=== PATIENT | male | born 1965 | race Asian ===

== ENCOUNTER 2019-04-02 08:32 | Inpatient (IN) | payer OTHER ==
[~2019-04-02] VITALS: Ht 165.1 cm; Wt 72.6 kg
--- NOTE | 2019-04-02 08:32 | NUR ---
Patient BIBA ALS, transferred to bed 10. RN evaluating patient at bedside.
--- NOTE | 2019-04-02 08:32 | NUR ---
PT BIBA TO ED FOR EVALUATIO OF SOB. PER EMS; PT SOB X 30 MINS, O2 SAT ON SCENE 73, PLACED ON CPAP O2 SAT 93%. LABORED BREATHING, 1 ROUND OF BREATHING TREATMENT GIVEN WITH NO RELIEVED. BLOOD SUGAR 153. PMH;ASTHMA. PT ALERT, NON VERBAL AT THIS TIME. PUPILS PERRLA 3/3 MM. RESPIATIONS LABORED, TACHYPNIC RR 30'S, ABDOMINAL BREATHING, ON CPAP UPON ARRIVAL, BL LUNG WHEEZES, O2 SAT 93%. RT AT BEDSIDE PLACED PT ON BIPAP. SKIN MOIST/PALE, DIAPHORESIS, PULSES PRESENT. ABDOMEN SOFT, NON DISTENDED, ACTIVE BOWEL SOUND X4. CARDAIC MONITOR ST HR 130'S, BP ELEVATED. AT BEDSIDE EVALUATING PT. WILL CONTINUE TO MONITOR
--- NOTE | 2019-04-02 08:33 | NUR ---
Respiratory therapist evaluating patient at bedside.
--- NOTE | 2019-04-02 08:33 | NUR ---
Dr. Bautista is evaluating the patient at bedside.
[2019-04-02] MEDS ORDERED: NACL 0.9% 1,000 ML IV ONE ×2 (08:35→10:50)
[2019-04-02] MEDS ORDERED: ALBUTEROL SULFATE/IPRATROPIU 3 ML SOL IH ONE ×2 (08:35→10:35)
--- NOTE | 2019-04-02 08:35 | NUR ---
PT BIBA ON CPAP 5 THEN PLACED ON SHENA V60 BIPAP SETTINGS 12/6 RR12 FIO2 30% ALARMS ON AND AUDIBLE AND AMBU BAG AT SIDE OF BIPAP AND BIPAP IS PLUGGED INTO RED OUTLET, AT 0852 BREATHING TX WAS GIVEN WITH 6MG DUONEB WITH NO ADVERSE REACTION POST TX B\S WHEEZING BILATERALLY, PT WEARING MED FACE MASK AND AT 0840 ABG DRAWN ON RR WITHOUT INCIDENT AND RESULTS GIVEN TO .
[2019-04-02 08:39] VITALS: BP 204/121
[2019-04-02] MEDS ORDERED: NITROGLYCERIN 2% 1 GM PKT TP ONE (08:40)
--- NOTE | 2019-04-02 08:46 | NUR ---
interventional tech at bedside.
[2019-04-02] MEDS ORDERED: fentaNYL 0.05 MG/ML VIAL IM ONE (08:50)
[2019-04-02] MEDS ORDERED: methylPREDNISolone SS 125 MG/2 ML VIAL IVP ONE (08:50)
[2019-04-02 08:52] VITALS: BP 212/116
[2019-04-02] MEDS ORDERED: methylPREDNISolone SS 125 MG/2 ML VIAL ONE (08:52)
[2019-04-02 09:10] LABS: BASOPHILS # (AUTO) 0.1 K/uL (0.00-0.22); BASOPHILS % (AUTO) 0.8 % (0.0-2.0); EOSINOPHILS # (AUTO) 0.5 K/uL (0-0.4); EOSINOPHILS % (AUTO) 4.3 % (0.0-4.0); HEMATOCRIT 47.2 % (36-52); HEMOGLOBIN 15.6 g/dL (12.0-18.0); LYMPHOCYTES # (AUTO) 4.6 K/uL (2.0-11.5); LYMPHOCYTES % (AUTO) 36.5 % (20.5-51.1); MEAN CORPUSCULAR HEMOGLOBIN 31 pg (27-31); MEAN CORPUSCULAR HGB CONC 33 g/dL (33-37); MEAN CORPUSCULAR VOLUME 94.5 fL (80-94); MONOCYTES # (AUTO) 0.6 K/uL (0.8-1.0); MONOCYTES % (AUTO) 4.4 % (1.7-9.3); NEUTROPHILS # (AUTO) 6.9 K/uL (1.8-7.7); PLATELET COUNT (AUTO) 261 K/uL (140-450); RED CELL DISTRIBUTION WIDTH 14.4 % (11.6-13.7); WHITE BLOOD COUNT (AUTO) 12.7 K/uL (4.8-10.8)
[2019-04-02] MEDS ORDERED: AZITHROMYCIN 500 MG in DEXTROSE 5% 250 ML IV ONE (09:35)
[2019-04-02] MEDS ORDERED: cefTRIAXone 1,000 MG VIAL ONE (09:43)
[2019-04-02] MEDS ORDERED: AZITHROMYCIN 500 MG INJ VIAL IV ONE (09:44)
[2019-04-02 10:08] LABS: ANION GAP 19.3 (8-16); CARBON DIOXIDE 21.2 mmol/L (21-32); CREATININE 1.2 mg/dL (0.7-1.3); POTASSIUM 4.5 mmol/L (3.5-5.1)
[2019-04-02 10:09] LABS: TOTAL BILIRUBIN 0.4 mg/dL (0.0-1.0)
[2019-04-02 10:10] LABS: ALBUMIN 3.6 g/dL (3.4-5.0)
--- NOTE | 2019-04-02 10:13 | NUR ---
PT HAS VOMITING ONCE. PER PT, AFTER GETTING THE FIRST ANTIBIOTICS HE STARTED TO FEEL NAUSEOUS. PAUSED ROCEPHIN AND CONTINUE TO MONITOR PT.
--- NOTE | 2019-04-02 10:20 | NUR ---
ABG DRAWN ON RR WITHOUT INCIDENT AND RESULTS GIVEN TO WITH NO CHANGES MADE TO VENT
--- NOTE | 2019-04-02 10:38 | NUR ---
Breathing treatment administered at bedside by respiratory therapist.
[2019-04-02 10:39] VITALS: BP 115/81
--- NOTE | 2019-04-02 11:00 | NUR ---
PT STATES FEELING MUCH BETTER. RESUMED ROCEPHIN.
--- NOTE | 2019-04-02 11:34 | NUR ---
PT IS RESTING IN BED AND ON BI-PAP. VSS. NSR.
[2019-04-02] MEDS ORDERED: methylPREDNISolone SS 60 MG in WATER STERILE 1 ML IM SCH (12:00)
[2019-04-02 12:07] LABS: APPEARANCE,URINE CLEAR (CLEAR); COLOR,URINE YELLOW (YELLOW)
[2019-04-02 12:08] LABS: UGLUCOSE TRACE (NEGATIVE)
[2019-04-02 12:09] LABS: BILIRUBIN,URINE NEGATIVE (NEGATIVE); BLOOD, URINE NEGATIVE (NEGATIVE); NITRITE, URINE NEGATIVE (NEGATIVE)
--- NOTE | 2019-04-02 12:09 | NUR ---
Dr. Arboleda is evaluating the patient at bedside.
[2019-04-02 12:10] LABS: LEUKOCYTE ESTERASE ,URINE NEGATIVE (NEGATIVE)
[2019-04-02 12:14] LABS: RBC,URINE NONE SEEN /HPF (0-5)
[2019-04-02 12:15] LABS: WBC,URINE NONE SEEN /HPF (0-5)
[2019-04-02 12:35] VITALS: BP 117/70
--- NOTE | 2019-04-02 12:35 | NUR ---
RECEIVED REPORT FROM EMERGENCY ROOM NURSE FOR CONTINUITY OF CARE. PT IN STABLE CONDITION. RESPIRATIONS EVEN AND UNLABORED, BIPAP PLACED. IV ACCESS INTACT AND PATENT. SAFETY MEASURES IN PLACE. BED IN LOW POSITION. CALL LIGHT AT BEDSIDE. WILL CONTINUE TO MONITOR.
--- NOTE | 2019-04-02 12:35 | NUR ---
Patient will be admitted to care of COPD exacerbation. Admited to Telemetry. Will go to room 123B. Belongings list completed. Report to SAULO Johnson.
[2019-04-02] MEDS ORDERED: ALBUTEROL 0.083% 2.5 MG/3 ML NEBU INH PRN (13:00)
[2019-04-02] MEDS ORDERED: METOCLOPRAMIDE 10 MG/2 ML INJ VIAL IVP PRN (13:10)
[2019-04-02] MEDS ORDERED: HYDROcodone/APAP 5/325 MG 1 TAB TAB PO PRN (13:10)
[2019-04-02] MEDS ORDERED: LORazepam 2 MG/ML VIAL IVP PRN (13:10)
[2019-04-02] MEDS ORDERED: MORPHINE SULFATE 4 MG/ML SYR IVP PRN (13:10)
--- NOTE | 2019-04-02 14:10 | NUR ---
PT LYING IN BED SLEEP WITH BIPAP INTACT AND PATENT. WILL CONTINUE TO MONITOR. BED IN LOW POSITION. CALL LIGHT AT BEDSIDE.
[2019-04-02] MEDS: ALBUTEROL SULFATE/IPRATROPIU 3 ML SOL IH SCH ×2 (15:00→19:07)
--- NOTE | 2019-04-02 15:31 | NUR ---
PT OFF BIPAP AND PLACED ON 3LNC O2 SAT 98%
--- NOTE | 2019-04-02 15:39 | NUR ---
SPOKE WITH CONCERNING THE BREATHING TX ORDER FOR PT STATED THAT THE PT WAS ABLE TO CONTINUE WITH THE DUONEB TX.
[2019-04-02 16:00] VITALS: BP 129/88
--- NOTE | 2019-04-02 16:09 | NUR ---
DC [age] YRS OLD ADMITTED FROM HOME WITH A DX OF COPD EXACERBATION. PT HAS HX OF COPD AND SMOKING HISTORY, ALERT AND ORIENTED X 4 ,AMBULATE WITH NO ASSIST . INITIATED IV STEROIDS AND BRONCHODILATORS. ADMINISTER IV AZITHROMYCIN, OXYGEN TO KEEP THE O2 SAT >88. DC PLAN TO GO BACK HOME WHEN STABLE. CM TO FOLLOW Addendum: 04/03/19 at 1456 by Jeny Chang CM dc planning F/U APPOINTMENT DONE WITH PCP DR KATE ROSALES 'S OFFICE ON 04/08/19Sunday AT 1130 AM THE ADDRESS IS [address] [place] [address] [id number] FOR OUT PT PULMONARY CALLED [facility] SPOKE WITH [employer], PER [employer] IT TAKES 2-3 DAYS FOR THE AUTHORIZATION AND ONCE IT APPROVED THEY WILL CONTACT THE PT . EXPLAIN TO THE PATIENT AND ALFREDO REMINDER TO SEE PCP GIVEN TO THE PT
--- NOTE | 2019-04-02 16:35 | NUR ---
PT TALKING WITH FAMILY AT BEDSIDE. 02 3L VIA NC, PT TOLERATING WELL. BED IN LOW POSITION. CALL LIGHT AT BEDSIDE. WILL CONTINUE TO MONITOR.
--- NOTE | 2019-04-02 17:45 | NUR ---
PT EATING DINNER AT THIS TIME. NC INTACT 3L. WILL CONTINUE TO MONITOR. FAMILY AT BEDSIDE. BED IN LOW POSITION. CALL LIGHT AT BEDSIDE.
[2019-04-02] MEDS: methylPREDNISolone SS 40 MG/ML VIAL IVP SCH (18:34)
[2019-04-02] MEDS: BUDESONIDE 0.5 MG/2 ML NEBU INH SCH (19:08)
--- NOTE | 2019-04-02 19:16 | NUR ---
RCV'D PT ON 2 L NC WITH SPO2 OF 94%. PT SAID HE IS SOB. PLACED PT OB BIPAP. HHN TX OF PULMICORT AND DUONEB GIVEN ORDERED ON NPPV. NO ADVERSE REACTION. TOLERATING WELL. SKIN INTACT. MASK MEDIUM. BIPAP CONNECTED TO RED OUTLET. ALARMS AUDIBLE. AMBU BAG AT BEDSIDE. WILL CONTINUE TO MONITOR.
--- NOTE | 2019-04-02 19:22 | NUR ---
GAVE REPORT TO BULK GAS SPECIALIST NURSE MONICA FOR CONTINUITY OF CARE. PT IN STABLE CONDITION.
--- NOTE | 2019-04-02 19:30 | NUR ---
RECEIVED FROM AM RN IN BED WITH PT. ON BREATHING TREATMENT FROM RESPIRATORY THERAPIST. NO SOB NOR PAIN COMPLAINTS DONE. CALL LIGHT WITH IN REACH. ABLE TO VERBALIZE SIMPLE NEEDS. TELEMETRY MONITORING.
[2019-04-02 20:00] VITALS: BP 110/70
--- NOTE | 2019-04-02 20:00 | NUR ---
PT REQUESTED TO BE OFF BIPAP. TOOK PT OFF BIPAP. PLACED ON 2 L NC. RN AWARE. WILL CONTINUE TO MONITOR.
[2019-04-02] MEDS ORDERED: ZOLPIDEM 5 MG TAB PO PRN (21:00)
[2019-04-03] VITALS: BP 107/63
--- NOTE | 2019-04-03 00:05 | NUR ---
SLEEPING WITH NO BIPAP ON. PREFER TO BE JUST IN 02 PER NASAL CANULA. NO SOB. DENIES ANY PAIN AT THIS TIME. ABLE TO VERBALIZE SIMPLE NEEDS WELL. A/O X 4. CALL LIGHT WITH IN REACH.
--- NOTE | 2019-04-03 04:30 | NUR ---
AT 4:30AM PT WAS PLACED ON BiPAP SETTINGS ORDERED. SKIN BARRIER WAS APPLIED ON THE NASAL BRIDGE AREA. PT IS TOLERATING BiPAP WELL. WILL CONTINUE TO MONITOR PATIENT
[2019-04-03 05:00] VITALS: BP 114/65
[2019-04-03] MEDS: methylPREDNISolone SS 40 MG/ML VIAL IVP SCH ×3 (05:55→13:15)
[2019-04-03 06:13] LABS: BASOPHILS % (AUTO) 0.1 % (0.0-2.0); HEMATOCRIT 41.4 % (36-52); HEMOGLOBIN 13.8 g/dL (12.0-18.0); LYMPHOCYTES # (AUTO) 0.8 K/uL (2.0-11.5); LYMPHOCYTES % (AUTO) 8.5 % (20.5-51.1); MEAN CORPUSCULAR HEMOGLOBIN 31 pg (27-31); MEAN CORPUSCULAR HGB CONC 33 g/dL (33-37); MEAN CORPUSCULAR VOLUME 92.7 fL (80-94); MONOCYTES # (AUTO) 0.2 K/uL (0.8-1.0); MONOCYTES % (AUTO) 2.5 % (1.7-9.3); NEUTROPHILS # (AUTO) 8.2 K/uL (1.8-7.7); NEUTROPHILS % (AUTO) 88.9 % (42.2-75.2); PLATELET COUNT (AUTO) 201 K/uL (140-450); RED BLOOD CELL COUNT(AUTO) 4.46 MIL/uL (4.20-6.10); RED CELL DISTRIBUTION WIDTH 14.1 % (11.6-13.7); WHITE BLOOD COUNT (AUTO) 9.2 K/uL (4.8-10.8)
--- NOTE | 2019-04-03 06:19 | NUR ---
PT. AT THIS TIME REQUESTED TO HAVE BIPAP OUT. STATED THAT HIS HEAD HURTS AND FACE HURTS WITH IT. PLACED ON 02 AT 3 LPM/NC. A/O X 4. ROM X 4. CLEAR SPEECH.
--- NOTE | 2019-04-03 06:26 | NUR ---
RESPIRATORY THERAPIST INFORMED OF PT. OUT OF BIPAP. AWARE AND SAID THAT IS OK.
[2019-04-03 06:40] LABS: ALBUMIN 3.1 g/dL (3.4-5.0); ANION GAP 15.7 (8-16); CARBON DIOXIDE 23.2 mmol/L (21-32); CREATININE 0.8 mg/dL (0.7-1.3); MAGNESIUM 2.2 mg/dL (1.8-2.4); POTASSIUM 3.9 mmol/L (3.5-5.1); TOTAL BILIRUBIN 0.5 mg/dL (0.0-1.0)
--- NOTE | 2019-04-03 07:17 | NUR ---
ENDORSED TO AM RN FOR CONTINUITY OF CARE AWAKE AND ALERT.ABLE TO VERBALIZE NEEDS WELL. ON TELEMETRY MONITORING. STILL COUGHING INTERMITTENTLY. WITH BREATHING TREATMENTS.
--- NOTE | 2019-04-03 07:18 | NUR ---
RECEIVED REPORT FROM INFORMATION AND DATA ARCHITECT ANALYST NURSE FOR CONTINUITY OF CARE. PT IN STABLE CONDITION. RESPIRATIONS EVEN AND UNLABORED, 02 3L VIA NC. IV INTACT AND PATENT. SAFETY MEASURES IN PLACE. BED IN LOW POSITION. CALL LIGHT AT BEDSIDE. BED ALARM ON. WILL CONTINUE TO MONITOR.
[2019-04-03] MEDS: ALBUTEROL SULFATE/IPRATROPIU 3 ML SOL IH SCH ×2 (07:32→12:44)
[2019-04-03] MEDS: BUDESONIDE 0.5 MG/2 ML NEBU INH SCH (07:33)
[2019-04-03 08:00] VITALS: BP 109/61
--- NOTE | 2019-04-03 08:02 | NUR ---
recived pt off bipap on 3lpm nc pt resting no resp distress at this time will continue to monitor pt
--- NOTE | 2019-04-03 08:32 | NUR ---
PATIENT HAS BEEN SCREENED AND CATEGORIZED MODERATE NUTRITION RISK. PATIENT WILL BE SEEN WITHIN 3-5 DAYS OF ADMISSION. 04/05/19 04/07/[address]
[2019-04-03] MEDS ORDERED: ENOXAPARIN 40 MG/0.4 ML SYR SUBQ SCH (09:00)
[2019-04-03] MEDS ORDERED: AZITHROMYCIN 500 MG in DEXTROSE 5% 250 ML IV SCH (09:00)
--- NOTE | 2019-04-03 09:35 | NUR ---
GAVE ORDERED DUE MEDICATIONS. PT TOLERATED WELL. BED IN LOW POSITION. BED ALARM ON. CALL LIGHT AT BEDSIDE. WILL CONTINUE TO MONITOR.
--- NOTE | 2019-04-03 11:10 | NUR ---
DR. MCCARTNEY AT BEDSIDE TALKING WITH PT AND PT SON SERVANDO ON THE PHONE. PT IN STABLE CONDITION.
[2019-04-03] MEDS ORDERED: PRED10TA6 PO (12:00)
[2019-04-03] MEDS ORDERED: BUDE1AER IH (12:00)
--- NOTE | 2019-04-03 12:15 | NUR ---
PT OFF UNIT FOR CHEST CT. PT IN STABLE CONDITION.
--- NOTE | 2019-04-03 12:30 | NUR ---
PT BACK ON UNIT IN STABLE CONDITION.
--- NOTE | 2019-04-03 14:30 | NUR ---
PT TALKING WITH FAMILY AT BEDSIDE. RESPIRATIONS EVEN AND UNLABORED. BED IN LOW POSITION. BED ALARM ON. CALL LIGHT AT BEDSIDE. WILL CONTINUE TO MONITOR.
--- NOTE | 2019-04-03 15:35 | NUR ---
GAVE DISCHARGE INSTRUCTIONS AND PRESCRIPTION TO TAKE TO HOME PHARMACY. PT VERBALIZED UNDERSTANDING. IV REMOVED, LUMEN INTACT. ID BAND REMOVED. PT WHEELED TO LOBBY IN WHEELCHAIR WHERE FAMILY WAS WAITING WITH VEHICLE. PT IN STABLE CONDITION.
== END 2019-04-03 15:35 | disposition home or self-care (01) | DRG 140 ==
LOC: MED 08:32 → MTU 12:00
PROVIDERS: ADMIT Internal Medicine Pulmonary Disease; ATTEND Internal Medicine Pulmonary Disease
PROC: 5A09357 Assistance with Respiratory Ventilation, Less than 24 Consecutive Hours, Continuous Positive Airway Pressure (ICD-10-PCS; principal; 2019-04-02)
DX: J44.1 Chronic obstructive pulmonary disease with (acute) exacerbation (principal); E87.4 Mixed disorder of acid-base balance; J20.9 Acute bronchitis, unspecified; F17.210 Nicotine dependence, cigarettes, uncomplicated; J44.0 Chronic obstructive pulmonary disease with (acute) lower respiratory infection; Z91.010 Allergy to peanuts
CPT/HCPCS: 36415; 36600; 71045; 71250; 80053; 81001; 82803; 83605; 83735; 84484; 85025; 85379; 87040; 87081; 93005; 94640; 94660; 94729; 96361; 96365; 96368; 96375; 99285; J0456; J0696; J1650; J2920; J2930; J3010; J7060; J7620; J7626; Q0092

== ENCOUNTER 2020-03-22 06:05 | Emergency (ER) | payer OTHER ==
[~2020-03-22] VITALS: Ht 162.6 cm; Wt 72.6 kg
[~2020-03-22 06:05] MED LIST: BUDE1AER IH; PRED10TA6 PO
[2020-03-22] MEDS ORDERED: DOPPLER MC ONE (06:16)
[2020-03-22] MEDS ORDERED: SODIUM BICARBONATE 8.4% PFS 50 MEQ/50 ML SYR IVP ONE (20:20)
[2020-03-22] MEDS ORDERED: EPINEPHrine PFS 0.1 MG/ML SYR IVP ONE (20:20)
[2020-03-22] MEDS ORDERED: MAGNESIUM SULFATE 50% 1000 MG/2 ML VIAL IV ONE (20:20)
== END 2020-03-22 06:19 | disposition expired ==
LOC: MED 06:05
DX: I46.9 Cardiac arrest, cause unspecified (principal)
CPT/HCPCS: 31500; 92950; 99285; J0171; J3475; 99283